=== PATIENT | male | born 1995 | race Caucasian/White ===

== ENCOUNTER 2020-04-20 18:47 | Emergency (ER) | payer OTHER ==
[~2020-04-20] VITALS: Ht 180.3 cm; Wt 81.6 kg
[~2020-04-20 18:47] MED LIST: NORCO 5-325 TA1 EACH PO; PENICILLIN V P500 MG PO
== END 2020-04-20 21:09 | disposition home or self-care (01) ==
LOC: ED 18:47
DX: T40.411A Poisoning by fentanyl or fentanyl analogs, accidental (unintentional), initial encounter (principal); Z88.5 Allergy status to narcotic agent
CPT/HCPCS: 99284; J7030

== ENCOUNTER 2020-05-06 21:19 | Emergency (ER) | payer OTHER ==
--- OUTSIDE RECORDS SUMMARY | 2020-05-06 21:22 | XMS ---
PreManage Notification: CLAU ALVAREZ [employer] Developer Events No recent Security Events currently on file CRITERIA MET - [facility] - 2 Visits in 30 Days CARE PROVIDERS There are no care providers on record at this time. Macy has no Care Guidelines for this patient. [facility] V[facility] (12 MO.) [facility] NOTE: Visits indicate total known visits. ED/C VISIT TRACKING (12 MO.) [facility]2020 21[facility] COMPLAINT: - POSSIBLE BROKEN JAW 04/20/2020 18:[address] [facility] TYPE: Emergency COMPLAINT: - POSS OVERDOSE DIAGNOSES: - Allergy status to narcotic agent - Poisoning by fentanyl or fentanyl analogs, accidental (unintentional), initial encounter INPATIENT VISIT TRACKING (12 MO.) No inpatient visits to display in this time frame [email or web address]
[2020-05-06] MEDS ORDERED: CYCLOBENZAPRINE10 MG PO (22:46)
== END 2020-05-06 23:04 | disposition home or self-care (01) ==
LOC: ED 21:19
DX: S00.83XA Contusion of other part of head, initial encounter (principal); W01.198A Fall on same level from slipping, tripping and stumbling with subsequent striking against other object, initial encounter; G47.30 Sleep apnea, unspecified; Z88.5 Allergy status to narcotic agent
CPT/HCPCS: 70450; 70486; 99283-25